=== PATIENT | male | born 1955 | race Caucasian/White ===

== ENCOUNTER 2016-11-30 19:53 | Emergency (ER) | payer OTHER ==
[2016-11-30 20:27] LABS: BASOPHIL % 0.6 % (0-2); PLATELET COUNT 201 x10^3mcL (130-400)
[2016-11-30 20:28] LABS: RED CELL DISTRIBUTION WIDTH 14.8 % (11.5-14.5)
[2016-11-30 20:36] LABS: CALCIUM 8.9 mg/dL (8.5-10.1); CARBON DIOXIDE 25.7 mmol/L (21-32); CHLORIDE SERUM 103 mmol/L (98-107); GFR1 > 60 mL/min; GLUCOSE SERUM 193 mg/dL (74-106); SODIUM SERUM 141 mmol/L (136-145)
[2016-11-30 20:40] LABS: ALBUMIN 3.8 g/dL (3.4-5.0); ALKALINE PHOSPHATASE 85 U/L (46-116); ALT/SGPT 48 U/L (16-63); AST/SGOT 41 U/L (15-37); BILIRUBIN TOTAL 0.4 mg/dL (0.20-1.00); TOTAL PROTEIN, SERUM 7.8 g/dL (6.4-8.2)
[2016-11-30 22:35] VITALS: BP 117/75
== END 2016-11-30 22:30 | disposition home or self-care (01) ==
LOC: ED 19:53
PROVIDERS: Emergency Medicine
DX: J44.9 Chronic obstructive pulmonary disease, unspecified (principal); J40 Bronchitis, not specified as acute or chronic; R73.9 Hyperglycemia, unspecified; E78.00 Pure hypercholesterolemia, unspecified; Z88.5 Allergy status to narcotic agent; Z79.51 Long term (current) use of inhaled steroids
CPT/HCPCS: 83880; J2930; J7613; J7644; Q0092